=== PATIENT | female | born 1955 | race Caucasian/White ===

== ENCOUNTER 2017-12-12 08:34 | Emergency (ER) | payer OTHER ==
[~2017-12-12] VITALS: Ht 154.9 cm; Wt 89.8 kg
[~2017-12-12 08:34] MED LIST: ACID1TAB14 PO; ATOR20TA58 PO; CELE200C PO; ESOM40CA PO; HYDR12.58 PO; INSU100I13 SQ; INSU100V31 SQ; LEVO150T5 PO; LOSA100T2 PO; LOSA1TAB25 PO; MAGN400C PO; POTA20TA4 PO; PRED20TA PO; Vancomycin Hcl PO
[2017-12-12 08:40] VITALS: BP 164/89
--- NOTE | 2017-12-12 08:54 | PHYS DOC ---
Past History Past Medical History: Diabetes, GERD, High Cholesterol, Hypertension, Hyperthyroid Past Surgical History: Tubal ligation, Other Alcohol Use: None Drug Use: None Adult General Chief Complaint Chief Complaint: UPPER EXTREMITY PAIN HPI HPI Patient is a 62-year-old female who presents ambulatory to the ED with the complaint of pain in the right medial clavicle, right upper chest/neck area. Patient states on night her dog sat on her right shoulder. Her dog weighs 75 pounds. At the time she did not feel a pop, it felt "stretched" but not painful. Patient woke up Thursday morning with a little pain in this area which improved but did not go away during the day. She does take Celebrex daily and she did take that on Thursday. She then woke up at 1:30 this morning because it was hurting. It continues to be painful this morning, causing her to have limited range of motion of her right shoulder and arm. The pain radiates into the right side of her neck anteriorly and laterally. It is very tender to touch. She has tried ice and took a hot shower this morning without much relief. She has not taken any pain medicine this morning and also has not taken her Celebrex because she has not eaten breakfast. Patient has had neck surgery and has hardware in her neck but says this doesn't feel anything like when she was having that problem. She denies fever or chills, denies having any kind of rash or skin lesions to her knowledge. Patient is right-handed and ambulates with a cane because of balance problems and uses her right hand for that. Review of Systems Review of Systems Constitutional: Denies fever or chills [] Integument: Denies rash or skin lesions [] Allergies Allergies Allergies Coded Allergies Type Severity Reaction Last Updated Verified codeine Adverse Reaction Intermediate 06/11/15 Yes erythromycin base Adverse Reaction Intermediate 06/11/15 Yes oxycodone Adverse Reaction Intermediate 06/11/15 Yes propoxycaine Adverse Reaction Intermediate 06/11/15 Yes Physical Exam Physical Exam Constitutional: Well developed, well nourished, no acute distress, non-toxic appearance. Alert, warm and dry, mentating normally. She was able to remove her own shirt and get into a gown with some difficulty moving her right arm. HENT: Normocephalic, atraumatic, bilateral external ears normal, nose normal. [] Eyes: conjunctiva normal, no discharge. [] Neck/upper thorax: There is very mild swelling, and moderate tenderness present over the medial right clavicle and the right sternoclavicular joint. There is no redness, discoloration, ecchymosis, or skin lesion. There is no crepitance or fluctuance. There is tenderness of the sternocleidomastoid muscle distally. There is no tenderness of the lateral clavicle or before meals joint. No tenderness of the shoulder joint. Cardiovascular:Heart rate regular rhythm, no murmur [] Lungs & Thorax: Bilateral breath sounds clear to auscultation [] Skin: Warm, dry, no erythema, no rash. [] Back: No skin lesions or rashes Extremities: Right upper extremity normal in appearance. Limited range of motion due to pain referred from the area of pain and tenderness described above. 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 Hand is warm with normal color and good radial pulse. Neurologic: Alert and oriented X 3, normal motor function, no focal deficits noted. [] Current Patient Data Vital Signs Vital Signs Date Time Temp Pulse Resp B/P (MAP) Pulse Ox O2 Delivery O2 Flow Rate FiO2 12/12/17 08:40 72 16 96 Room Air EKG EKG [] Radiology/Procedures Radiology/Procedures Two-view x-ray of the right clavicle read by me. No acute findings.[] Course & Med Decision Making Course & Med Decision Making Pertinent Labs and Imaging studies reviewed. (See chart for details) 62-year-old female presents ambulatory to the ED with right proximal clavicle and sternoclavicular joint pain for 2 days. It may have started when her large dog sat on her right shoulder. It appears to be mildly swollen and point tender in this area with tenderness and pain radiating into the right sternal cleidomastoid musculature and surrounding anterior lateral lower right neck musculature. There is no skin abnormality, nothing to suggest infection of any type. We will treat her for local inflammation and pain. See instructions for plan. [] Dragon Disclaimer Dragon Disclaimer This electronic medical record was generated, in whole or in part, using a voice recognition dictation system. Departure Departure: Impression: Primary Impression: Pain of right clavicle Additional Impression: Sternocleidomastoid muscle tenderness Disposition: 01 HOME, SELF-CARE Condition: STABLE Referrals: QUOC BAHENA (PCP) Additional Instructions: X-rays today read by me do not show anything abnormal. The radiologist will read them as well. I believe your pain is from injury and inflammation of the joint and muscle as discussed, the sternoclavicular joint and sternocleidomastoid muscle. Ice 15-20 minutes out of every 1-2 hours. Do not use heat. Continue to take your Celebrex as prescribed. If you are not better in 2-3 days, talk to your doctor about possibly switching to a different anti-inflammatory for more acute symptoms. Problem Qualifiers SEBASTIAN POST MD Dec 12, 2017 08:54
--- NOTE | 2017-12-12 09:13 | RAD ---
Two-view right clavicle radiographs 12/12/2017 Clinical history: Right clavicle pain for 2 days. Large dog sat on patient's shoulder. AP and axial digital radiographs the right clavicle were obtained. No fracture or dislocation right clavicle is seen. Mild degenerative changes are seen involving the right glenohumeral joint and right AC joint. Impression: Mild degenerative changes are seen involving the right shoulder. No acute osseous abnormality is seen.
== END 2017-12-12 09:21 | disposition home or self-care (01) ==
LOC: ER 08:34
DX: M25.511 Pain in right shoulder (principal); M62.89 Other specified disorders of muscle; E78.00 Pure hypercholesterolemia, unspecified; I10 Essential (primary) hypertension; K21.9 Gastro-esophageal reflux disease without esophagitis; E11.9 Type 2 diabetes mellitus without complications; E05.90 Thyrotoxicosis, unspecified without thyrotoxic crisis or storm; Z88.5 Allergy status to narcotic agent; Z88.1 Allergy status to other antibiotic agents; Z88.4 Allergy status to anesthetic agent
CPT/HCPCS: 73000; 99284

== ENCOUNTER 2018-06-27 21:41 | Emergency (ER) | payer MEDICARE, OTHER ==
[~2018-06-27] VITALS: Ht 154.9 cm; Wt 89.8 kg
[2018-06-27] MEDS ORDERED: LIDO:MAALOX 1:1 20 ML SINGLE DOSE. ONE (22:06)
[2018-06-27] MEDS ORDERED: LIDO:MAALOX 1:1 20 ML SINGLE DOSE. PO ONE (22:30)
[2018-06-27 22:33] LABS: BASO # 0.1 x10^3/uL (0.0-0.2); BASO % 1 % (0-3); EOS # 0.5 x10^3/uL (0.0-0.7); EOS % 4 % (0-3); HEMATOCRIT 40.9 % (36.0-47.0); HEMOGLOBIN 13.7 g/dL (12.0-15.5); LYMPH # 3.3 x10^3/uL (1.0-4.8); LYMPH % 27 % (24-48); MEAN CORPUSCULAR HEMOGLOBIN 28 pg (25-35); MEAN CORPUSCULAR HGB CONC 34 g/dL (31-37); MEAN CORPUSCULAR VOLUME 82 fL (79-100); MONO # 0.9 x10^3/uL (0.0-1.1); MONO % 8 % (0-9); NEUT # 7.4 x10^3uL (1.8-7.7); NEUT % 61 % (31-73); PLATELET COUNT 229 x10^3/uL (140-400); RED BLOOD COUNT 4.96 x10^6/uL (3.50-5.40); RED CELL DISTRIBUTION WIDTH 13.8 % (11.5-14.5); WHITE BLOOD COUNT 12.2 x10^3/uL (4.0-11.0)
--- NOTE | 2018-06-27 22:40 | RAD ---
EXAM: CHEST 1 VIEW History: Chest pain COMPARISON: None available. TECHNIQUE: Single portable radiograph of the chest FINDINGS: The cardiac silhouette is unremarkable. The lungs are clear bilaterally. The costophrenic sulci are clear and well demarcated. Cervical hardware is identified. IMPRESSION: No radiographic evidence of an acute cardiopulmonary process. Electronically signed by: Navid Danielle MD (06/27/2018 10:37 PM) [facility]
--- NOTE | 2018-06-27 22:44 | PHYS DOC ---
Past History Past Medical History: Diabetes, GERD, High Cholesterol, Hypertension, Hypothyroid Past Surgical History: Tubal ligation, Other Alcohol Use: None Drug Use: None Adult General Chief Complaint Chief Complaint: HEARTBURN/GI DISTRESS HPI HPI 63-year-old female presents with epigastric pain and heartburn. Patient's long history of GERD. She takes Prilosec daily for this. She on occasion has episodes of reflux to get out of control and it is difficult to get the pain to go away. Today was one of those episodes. She states around 6:30 PM she felt it coming on. She took an additional Prilosec which did not help. She tried some Maalox, 2 doses and this helped for a short period but then it came back. In the past, she has had to come the emergency room for medication to control it so she came to the emergency room. She has not had do this in 4 or 5 years. She describes the pain as a epigastric burning. She denies radiation. She denies shortness of breath or diaphoresis. She has no other complaints. Review of Systems Review of Systems Constitutional: Denies fever or chills [] Eyes: Denies change in visual acuity, redness, or eye pain [] HENT: Denies nasal congestion or sore throat [] Respiratory: Denies cough or shortness of breath [] Cardiovascular: No additional information not addressed in HPI [] GI: Epigastric pain[] : Denies dysuria or hematuria [] Musculoskeletal: Denies back pain or joint pain [] Integument: Denies rash or skin lesions [] Neurologic: Denies headache, focal weakness or sensory changes [] Endocrine: Denies polyuria or polydipsia [] All other systems were reviewed and found to be within normal limits, except as documented in this note. Current Medications Current Medications Current Medications Medications (Trade) Dose Ordered Sig/Lalitha Start Time Stop Time Status Last Admin Dose Admin Multi-Ingredient Mouthwash/Gargle (Gi Cocktail) 20 ml STK-MED ONCE 06/27/18 22:06 06/27/18 22:07 DC Allergies Allergies Allergies Coded Allergies Type Severity Reaction Last Updated Verified codeine Adverse Reaction Intermediate 06/11/15 Yes erythromycin base Adverse Reaction Intermediate 06/11/15 Yes oxycodone Adverse Reaction Intermediate 06/11/15 Yes propoxycaine Adverse Reaction Intermediate 06/11/15 Yes Physical Exam Physical Exam Constitutional: Well developed, well nourished, no acute distress, non-toxic appearance. [] HENT: Normocephalic, atraumatic, bilateral external ears normal, oropharynx moist, no oral exudates, nose normal. [] Eyes: PERRLA, EOMI, conjunctiva normal, no discharge. [] Neck: Normal range of motion, no tenderness, supple, no stridor. [] Cardiovascular:Heart rate regular rhythm, no murmur [] Lungs & Thorax: Bilateral breath sounds clear to auscultation [] Abdomen: Bowel sounds normal, soft, no tenderness, no masses, no pulsatile masses. [] Skin: Warm, dry, no erythema, no rash. [] Back: No tenderness, no CVA tenderness. [] Extremities: No tenderness, no cyanosis, no clubbing, ROM intact, no edema. [] Neurologic: Alert and oriented X 3, normal motor function, normal sensory function, no focal deficits noted. [] Psychologic: Affect normal, judgement normal, mood normal. [] Current Patient Data Vital Signs Vital Signs Date Time Temp Pulse Resp B/P (MAP) Pulse Ox O2 Delivery O2 Flow Rate FiO2 06/27/18 21:58 97.8 63 16 97 Room Air Lab Results Laboratory Tests Test 06/27/18 22:20 White Blood Count 12.2 x10^3/uL (4.0-11.0) H Red Blood Count 4.96 x10^6/uL (3.50-5.40) Hemoglobin 13.7 g/dL (12.0-15.5) Hematocrit 40.9 % (36.0-47.0) Mean Corpuscular Volume 82 fL (79-100) Mean Corpuscular Hemoglobin 28 pg (25-35) Mean Corpuscular Hemoglobin Concent 34 g/dL (31-37) Red Cell Distribution Width 13.8 % (11.5-14.5) Platelet Count 229 x10^3/uL (140-400) Neutrophils (%) (Auto) 61 % (31-73) Lymphocytes (%) (Auto) 27 % (24-48) Monocytes (%) (Auto) 8 % (0-9) Eosinophils (%) (Auto) 4 % (0-3) H Basophils (%) (Auto) 1 % (0-3) Neutrophils # (Auto) 7.4 x10^3uL (1.8-7.7) Lymphocytes # (Auto) 3.3 x10^3/uL (1.0-4.8) Monocytes # (Auto) 0.9 x10^3/uL (0.0-1.1) Eosinophils # (Auto) 0.5 x10^3/uL (0.0-0.7) Basophils # (Auto) 0.1 x10^3/uL (0.0-0.2) EKG EKG [] Radiology/Procedures Radiology/Procedures [] Impressions: EXAM: CHEST 1 VIEW History: Chest pain COMPARISON: None available. TECHNIQUE: Single portable radiograph of the chest FINDINGS: The cardiac silhouette is unremarkable. The lungs are clear bilaterally. The costophrenic sulci are clear and well demarcated. Cervical hardware is identified. IMPRESSION: No radiographic evidence of an acute cardiopulmonary process. Electronically signed by: Navid Danielle MD (06/27/2018 10:37 PM) [facility] DICTATED AND SIGNED BY: NAVID DANIELLE MD DATE: 06/27/18 2236 CC: ANISH BAKER DO; RAPHAEL GRIMES MD Course & Med Decision Making Course & Med Decision Making Pertinent Labs and Imaging studies reviewed. (See chart for details) The patient was treated as potential chest pain patient when she arrived. Her EKG is unremarkable. She was given a GI cocktail which has helped with her pain. She is feeling much better at this time. Her labs are still pending. Her chest x-ray is unremarkable. The patient's labs are unremarkable except for slightly decreased potassium at 3.1. Her troponin is negative. Patient is feeling 100% better at this time. She is ready to go home. She is stable for discharge at this time. [] Dragon Disclaimer Dragon Disclaimer This electronic medical record was generated, in whole or in part, using a voice recognition dictation system. Departure Departure: Referrals: RAPHAEL GRIMES MD (PCP) ANISH BAKER DO Jun 27, 2018 22:44
[2018-06-27 22:49] LABS: ALBUMIN 3.4 g/dL (3.4-5.0); ALBUMIN/GLOBULIN RATIO 0.9 (1.0-1.7); CALCIUM 9.3 mg/dL (8.5-10.1); GFR 55.6; POTASSIUM 3.1 mmol/L (3.5-5.1); TOTAL BILIRUBIN 0.4 mg/dL (0.2-1.0); TOTAL PROTEIN 7.2 g/dL (6.4-8.2)
[2018-06-27 22:54] VITALS: BP 140/73
[2018-06-27] MEDS ORDERED: FAMOTIDINE 20 MG/2 ML VIAL IVP ONE (23:00)
--- NOTE | 2018-06-29 13:48 | EKG ---
[address] [address] Test Date: 2018-06-27 Test Time: 22:10:11 Pat Name: BILLY PFEIFFER Department: Room: Gender: F River Guide: : 1955 Requested By: ANISH BAKER Order Number: [id number] Reading MD: Measurements Intervals Martin Rate: P: MT: QRS: QRSD: T: QT: QTc: Interpretive Statements
== END 2018-06-27 23:10 | disposition home or self-care (01) ==
LOC: ER 21:41
DX: R07.9 Chest pain, unspecified (principal); R10.13 Epigastric pain; R12 Heartburn; E11.9 Type 2 diabetes mellitus without complications; K21.9 Gastro-esophageal reflux disease without esophagitis; E78.00 Pure hypercholesterolemia, unspecified; I10 Essential (primary) hypertension; E03.9 Hypothyroidism, unspecified; Z88.5 Allergy status to narcotic agent; Z88.1 Allergy status to other antibiotic agents; Z88.8 Allergy status to other drugs, medicaments and biological substances
CPT/HCPCS: 36415; 71045; 80053; 84484; 85025; 93005; 99285

== ENCOUNTER → 2019-11-18 | Outpatient (CLI) | payer MEDICARE, OTHER ==
--- NOTE | 2019-11-18 17:07 | RAD ---
US PELVIS W/TV History: Postmenopausal bleeding Comparison: None. Findings: Multiple transabdominal sonographic images of pelvis are submitted. Uterus measured 11.2 x 4.8 x 7.8 cm. Neither ovary is well visualized on this portion of exam. Transvaginal ultrasound: Multiple transvaginal sonographic images of the pelvis are submitted. There is a fairly large anechoic lesion of the in the right adnexal region, measures about 6.5 x 5.5 x 5 cm. Normal right ovary is not demonstrated. There is no significant free fluid. Uterus measured 6.5 x 4.8 x 6.2 cm. Endometrium is thickened about 1.7 cm. Left ovary measured 3 x 1.5 x 2.9 cm, normal low resistance vascularity. Impression: 1. There is endometrial thickening, could be due to hyperplasia, neoplasm not included. 2. There is large anechoic lesion of the right adnexa with poor definition of the right ovary. This may be a large cyst although follow-up in 3 months advised given large size. Normal right ovary is not seen. Electronically signed by: Alexis Mccann MD (11/18/2019 5:04 PM) [id number]
== END ==
LOC: US 12:34
PROVIDERS: ATTEND Obstetrics & Gynecology
DX: N95.0 Postmenopausal bleeding (principal)
CPT/HCPCS: 76830; 76856

== ENCOUNTER → 2019-11-29 | Outpatient (CLI) | payer MEDICARE, OTHER ==
[2019-11-30 06:07] LABS: CA 125 15.2 U/mL (0.0-38.1)
== END | disposition home or self-care (01) ==
LOC: LAB 14:06
PROVIDERS: ATTEND Nurse Practitioner Women's Health
DX: D39.11 Neoplasm of uncertain behavior of right ovary (principal); G89.3 Neoplasm related pain (acute) (chronic); I10 Essential (primary) hypertension; E11.9 Type 2 diabetes mellitus without complications; E03.9 Hypothyroidism, unspecified; E78.00 Pure hypercholesterolemia, unspecified; K21.9 Gastro-esophageal reflux disease without esophagitis; Z88.4 Allergy status to anesthetic agent; Z88.5 Allergy status to narcotic agent; Z88.8 Allergy status to other drugs, medicaments and biological substances; Z90.49 Acquired absence of other specified parts of digestive tract; Z87.891 Personal history of nicotine dependence
CPT/HCPCS: 36415; 86304; 86305

== ENCOUNTER → 2020-02-01 | Outpatient (CLI) | payer MEDICARE, OTHER ==
--- NOTE | 2020-02-01 15:07 | RAD ---
INDICATION: Follow-up of right ovarian cystic lesion COMPARISON: November 18, 2019 TECHNIQUE: Grayscale and color ultrasound images uterus and adnexa. Transabdominal and transvaginal images obtained. Transvaginal images were needed to better visualize structures that were limited on transabdominal imaging. FINDINGS: Uterus: 101 x 55 x 44 mm. Endometrial Stripe: 10 mm. There are multiple hypoechoic lesions seen adjacent to the endometrial stripe with internal debris. This includes near the cervical region. Right Ovary: 64 x 61 x 59 mm. Cystic lesion measuring 57 x 56 mm. Left Ovary: Not visualized IMPRESSION: * Repeat demonstration of right adnexal cystic lesion which is slightly decreased from prior. Given the size of this lesion continued follow-up will be needed. * Numerous hypoechoic lesions are seen adjacent to the endometrial stripe which could be from causes such as complex nabothian cyst. * There is thickening of the endometrial stripe for the patient's age. Can be seen with endometrial hyperplasia or an endometrial neoplasm. Electronically signed by: Brad Walker MD (02/01/2020 3:04 PM) [id number]
== END ==
LOC: US 12:48
PROVIDERS: ATTEND Obstetrics & Gynecology
DX: N83.201 Unspecified ovarian cyst, right side (principal)
CPT/HCPCS: 76830; 76856

== ENCOUNTER 2020-02-11 08:05 | Emergency (ER) | payer MEDICARE, OTHER ==
[~2020-02-11] VITALS: Ht 154.9 cm; Wt 91.0 kg
[2020-02-11 08:19] VITALS: BP 105/65
[2020-02-11] MEDS ORDERED: methylPREDNISolone SOD SUCC PF 125 MG/2 ML VIAL. IM ONE (08:45)
[2020-02-11] MEDS ORDERED: CYCL5TAB PO (08:49)
[2020-02-11] MEDS ORDERED: HYDR-3165 PO (08:49)
[2020-02-11] MEDS ORDERED: PRED-220 PO (08:49)
--- NOTE | 2020-02-11 08:49 | PHYS DOC ---
Past History Past Medical History: Diabetes, GERD, High Cholesterol, Hypertension, Hypothyroid Past Surgical History: Tubal ligation, Other Alcohol Use: None Drug Use: None General Adult EDM: Chief Complaint: UPPER EXTREMITY PAIN HPI: HPI: 64-year-old female presents with left shoulder pain. She has a history of bilateral shoulder pain and is on celebrex daily. She has been off the Celebrex for several days because she is supposed to have surgery next week. It is a gynecological surgery. She presents today with increased left shoulder pain, limited range of motion, and lower neck pain. She denies any trauma or specific inciting event. She thinks she has just had stress lately and has had more muscle tension. She has a history of cervical fusion many years ago. She is very concerned about this pain because her is coming home from an inpatient hospital stay in a couple of days. She needs to be functional at home. She denies any other concerns at this time. Review of Systems: Review of Systems: Constitutional: Denies fever or chills Eyes: Denies change in visual acuity HENT: Denies nasal congestion or sore throat Respiratory: Denies cough or shortness of breath Cardiovascular: Denies chest pain or edema GI: Denies abdominal pain, nausea, vomiting, bloody stools or diarrhea : Denies dysuria Musculoskeletal: Left shoulder pain Integument: Denies rash Neurologic: Denies headache, focal weakness or sensory changes Endocrine: Denies polyuria or polydipsia Lymphatic: Denies swollen glands Psychiatric: Denies depression or anxiety Heart Score: Risk Factors: Risk Factors: DM, Current or recent (<one month) smoker, HTN, HLP, family history of CAD, obesity. Risk Scores: Score 0 - 3: 2.5% MACE over next 6 weeks - Discharge Home Score 4 - 6: 20.3% MACE over next 6 weeks - Admit for Clinical Observation Score 7 - 10: 72.7% MACE over next 6 weeks - Early Invasive Strategies Allergies: Allergies: Allergies Coded Allergies Type Severity Reaction Last Updated Verified acetaminophen Allergy Unknown 02/11/20 Yes propoxyphene Allergy Unknown 02/11/20 Yes codeine Adverse Reaction Intermediate 06/11/15 Yes erythromycin base Adverse Reaction Intermediate 06/11/15 Yes oxycodone Adverse Reaction Intermediate 06/11/15 Yes propoxycaine Adverse Reaction Intermediate 06/11/15 Yes Physical Exam: PE: Constitutional: Well developed, well nourished, no acute distress, non-toxic appearance. [] HENT: Normocephalic, atraumatic, bilateral external ears normal, oropharynx moist, no oral exudates, nose normal. [] Eyes: PERRLA, EOMI, conjunctiva normal, no discharge. [] Neck: Normal range of motion, no tenderness, supple, no stridor. [] Cardiovascular: Heart rate regular rhythm, no murmur [] Lungs & Thorax: Bilateral breath sounds clear to auscultation [] Abdomen: Bowel sounds normal, soft, no tenderness, no masses, no pulsatile masses. [] Skin: Warm, dry, no erythema, no rash. [] Back: No tenderness, no CVA tenderness. [] Extremities: Muscle tension over the upper shoulder, lower cervical muscles. Mild tenderness over the same. Decreased range of motion left shoulder due to pain. [] Neurologic: Alert and oriented X 3, normal motor function, normal sensory function, no focal deficits noted. [] Psychologic: Affect normal, judgement normal, mood normal. [] Current Patient Data: Vital Signs: Vital Signs Date Time Temp Pulse Resp B/P (MAP) Pulse Ox O2 Delivery O2 Flow Rate FiO2 02/11/20 08:19 97.6 70 16 105/65 (78) 98 Room Air EKG: EKG: [] Radiology/Procedures: Radiology/Procedures: [] Course & Med Decision Making: Course & Med Decision Making Pertinent Labs and Imaging studies reviewed. (See chart for details) I think the patient is having acute muscle spasm and muscle tension. I do not believe imaging is warranted as there is no trauma to cause any injury. I will treat her with [place] 5/325, steroids, and short course of Flexeril. The patient is in agreement with this plan. She is stable for discharge at this time. [] Dragon Disclaimer: Dragon Disclaimer: This electronic medical record was generated, in whole or in part, using a voice recognition dictation system. Departure Departure: Impression: Primary Impression: Cervical muscle strain Qualified Codes: S16.1XXA - Strain of muscle, fascia and tendon at neck level, initial encounter Additional Impression: Shoulder pain, left Qualified Codes: M25.512 - Pain in left shoulder; G89.29 - Other chronic pain Disposition: 01 HOME/RESIDENCE PRIOR TO ADM Condition: STABLE Referrals: RAPHAEL GRIMES MD (PCP) Patient Instructions: Cervical Sprain, [id number], Shoulder Pain, [id number] Scripts Cyclobenzaprine Hcl (CYCLOBENZAPRINE HCL) 5 Mg Tablet 1 TAB PO TID PRN for MUSCLE SPASMS, #20 TAB Prov: ANISH BAKER DO 02/11/20 Prednisone (PREDNISONE) 10 Mg Tablet 50 MG PO DAILY for shoulder pain for 2 Days, #10 TAB Prov: ANISH BAKER DO 02/11/20 Hydrocodone Bit/Acetaminophen (NORCO 5-325 TABLET) 1 Each Tablet 1 TAB PO PRN Q6HRS PRN for PAIN, #10 TAB 0 Refills Prov: ANISH BAKER DO 02/11/20 ANISH BAKER DO February 11, 2020 08:49
== END 2020-02-11 09:21 | disposition home or self-care (01) ==
LOC: ER 08:05
DX: S16.1XXA Strain of muscle, fascia and tendon at neck level, initial encounter (principal); M54.2 Cervicalgia; E11.9 Type 2 diabetes mellitus without complications; K21.9 Gastro-esophageal reflux disease without esophagitis; E78.00 Pure hypercholesterolemia, unspecified; I10 Essential (primary) hypertension; E03.9 Hypothyroidism, unspecified; Z88.6 Allergy status to analgesic agent; Z88.5 Allergy status to narcotic agent; Z88.1 Allergy status to other antibiotic agents; Z88.8 Allergy status to other drugs, medicaments and biological substances; X50.9XXA Other and unspecified overexertion or strenuous movements or postures, initial encounter; Y93.89 Activity, other specified; Y92.89 Other specified places as the place of occurrence of the external cause; Y99.8 Other external cause status
CPT/HCPCS: 96372; 99283; J2930

== ENCOUNTER → 2021-06-06 | Outpatient (CLI) | payer MEDICARE, OTHER ==
[~2021-06-06] MED LIST changes: +CYCL5TAB PO; +HYDR-3165 PO; +IOHEXOL 240 MG/ML 50ML VIAL. ONE; +POTA-121 PO; -POTA20TA4 PO; +PRED-220 PO
--- NOTE | 2021-06-06 11:44 | RAD ---
EXAM: Abdomen and pelvis CT without intravenous contrast. HISTORY: Pain. TECHNIQUE: Computed tomographic images of the abdomen and pelvis were obtained without contrast. Mult iplanar reformatting was performed. *One or more of the following individualized dose reduction techniques were utilized for this examina tion: 1. Automated exposure control. 2. Adjustment of the mA and/or kV according to patient size. 3. Use of iterative reconstruction technique. COMPARISON: Pelvic sonogram dated 02/01/2020 11/18/2019. FINDINGS: Evaluation of the lower thorax demonstrates 2 mm nodules within the posterior bilateral low er lobes. There is linear atelectasis or scarring within the left lower lobe. There is focal dilatati on of the distal esophagus possibly due to a distal esophageal diverticulum. No hiatal hernia is seen . There is hepatic steatosis. The gallbladder and pancreas, spleen and adrenal glands are unremarkabl e. No suspicious renal lesion is seen. There is no hydronephrosis. There is no nephroureterolithiasis . There is no appendicitis. There has been partial distal colonic resection. There is no abnormal bowel wall thickening. There is no bowel obstruction. The bladder is empty. The uterus is unremarkable. Th ere is a 7.5 cm cyst within the right adnexa with suspected adjacent right ovarian parenchyma. The le ft ovary is unremarkable. There is aortic atherosclerosis. There is calcified atherosclerotic plaque at the origin of the superior mesenteric artery and right renal artery. There is incidental edema and skin induration involving the ventral abdominal wall fat. There is no lymphadenopathy. There is no s uspicious osseous lesion. There is degenerative change at the lumbosacral junction, with associated f oraminal and central canal stenosis. IMPRESSION: 1. 7.5 cm right adnexal cyst, likely ovarian or paraovarian in etiology. This is similar in size and simple in appearance on a sonogram performed 11/18/2019, allowing for differences in imaging modality. Given the postmenopausal status the patient, correlation with a CA-125 tumor marker level and continu ed sonographic follow-up is recommended. Surgical consultation can also be considered given the postm enopausal status of the patient. 2. Partial distal colonic resection. 3. Suspected distal esophageal diverticulum. 4. Multiple tiny bilateral lower lobe pulmonary nodules measuring up to 2 mm. Follow-up can be perfor med in one year if there are risk factors for pulmonary neoplasm. Electronically signed by: Annalisa Packer MD (06/06/2021 11:41 AM) [facility]
== END ==
LOC: CT 09:30
PROVIDERS: ATTEND Family Medicine
DX: K76.0 Fatty (change of) liver, not elsewhere classified (principal); R91.8 Other nonspecific abnormal finding of lung field; Z90.49 Acquired absence of other specified parts of digestive tract
CPT/HCPCS: 74176

== ENCOUNTER → 2021-09-27 | Outpatient (CLI) | payer MEDICARE, OTHER ==
[~2021-09-27] MED LIST changes: -IOHEXOL 240 MG/ML 50ML VIAL. ONE
--- NOTE | 2021-09-27 10:02 | RAD ---
Esophagram 09/27/2021 CLINICAL HISTORY: Esophageal diverticulum seen on endoscopy. Early satiety. TECHNIQUE: An esophagram was performed under fluoroscopic control. The total fluoroscopic time is 1.9 minutes. 9 digital spot radiographs were obtained. FINDINGS: Comparison is made to a CT scan of the abdomen dated 06/03/2021. The patient is post anterior discectomy and fusion using an anterior plate and bone screws at C4-5 an d C5-6. The swallowing mechanism is within normal limits. No penetration or aspiration is seen. The m ucosal pattern of the hypopharynx is within normal limits. A diverticulum is seen involving the dista l thoracic esophagus which measures approximately 2.5 cm in size. This is approximately 5 mm superior to the GE junction. No additional mucosal abnormality of the esophagus is seen. There is no evidence of a hiatal hernia. Tertiary contractions of the esophagus are seen consistent with mild esophageal dysmotility. No gastroesophageal reflux is noted. IMPRESSION: 1. 2.5 cm distal esophageal diverticulum. 2. Mild esophageal dysmotility. Electronically signed by: Nathaniel Krause MD (09/27/2021 10:00 AM) [place] [id number]
== END ==
LOC: RAD 08:44
PROVIDERS: ATTEND Internal Medicine Gastroenterology
DX: R13.10 Dysphagia, unspecified (principal)
CPT/HCPCS: 74220